=== PATIENT | female | born 1960 | race Caucasian/White ===

== ENCOUNTER → 2017-11-08 17:06 | Outpatient (CLI) | payer BC ==
[2014-01-01 07:47] VITALS: BMI 28.4
[~2017-11-08 17:06] MED LIST: ANALPRAM HC 2.530 GM TP; DEXILANT60 MG PO; DILAUDID2 MG PO; DYAZIDE 37.5/251 CAP PO; ESTRATEST 1.25-1 TAB PO; PHENERGAN25 M1 PO; TENORMIN25 MG PO; ZOCOR20 MG PO
== END | disposition home or self-care (01) ==
LOC: D.MAMMO 15:45
DX: Z12.31 Encounter for screening mammogram for malignant neoplasm of breast (principal)

== ENCOUNTER → 2018-12-28 13:00 | Outpatient (CLI) | payer BC ==
[2014-01-01 07:47] VITALS: BMI 28.4
== END | disposition home or self-care (01) ==
LOC: D.MAMMO 13:00
PROVIDERS: ATTEND Obstetrics & Gynecology
DX: Z12.31 Encounter for screening mammogram for malignant neoplasm of breast (principal)